=== PATIENT | female | born 1965 | race Hispanic/Latino ===

== ENCOUNTER 2024-02-21 10:22 | Emergency (ER) | payer BC ==
[2024-02-21] MEDS: HYDROCODONE/ACETAMINOPHEN 5/325 MG TAB PO ONE (11:50)
[2024-02-21] MEDS: CYCLOBENZAPRINE HCL 10 MG TABLET PO ONE (11:50)
[2024-02-21] MEDS: DEXAMETHASONE SOD PHOSPHATE 4 MG/ML 1ML VIAL IM ONE (11:50)
[2024-02-21] MEDS ORDERED: IBUP-2077 PO (11:53)
[2024-02-21] MEDS ORDERED: CYCL10TA16 PO (11:53)
[2024-02-21 12:15] VITALS: BP 130/78; PULSE 64; RESP 20; O2SAT 99
== END 2024-02-21 17:31 | disposition home or self-care (01) ==
LOC: EDH 10:22
DX: S29.012A Strain of muscle and tendon of back wall of thorax, initial encounter (principal); S39.012A Strain of muscle, fascia and tendon of lower back, initial encounter; E11.9 Type 2 diabetes mellitus without complications; I10 Essential (primary) hypertension; Z88.0 Allergy status to penicillin; Z98.890 Other specified postprocedural states; X58.XXXA Exposure to other specified factors, initial encounter; Y93.89 Activity, other specified; Y92.89 Other specified places as the place of occurrence of the external cause; Y99.8 Other external cause status
CPT/HCPCS: 99284; 72100; 72070; 96372; J1100